=== PATIENT | female | born 1960 | race Caucasian/White ===

== ENCOUNTER 2020-03-11 13:49 | Emergency (ER) | payer BC ==
[2020-03-11 13:58] VITALS: BP 159/86; PULSE 98
--- NOTE | 2020-03-11 14:04 | EDM.PDOC ---
ED HPI GENERAL MEDICAL PROBLEM - General Chief Complaint: Lower Extremity Injury/Pain Stated Complaint: ACCIDENT VIA [facility] AM Time Seen by Provider: 03/11/20 13:55 Source of Information: Reports: Patient, EMS History Limitations: Reports: No Limitations - History of Present Illness INITIAL COMMENTS - FREE TEXT/NARRATIVE: 59 yo female had just arrived here from her home [place] of [facility] when a couple of medium sized dogs ran into her and knocked her down with resulting ? dislocation of her L ankle. EMS arrived with her after Fentanyl 100 mcg was given IV with relief of her pain. Onset: Today, Sudden Onset Date: 03/11/20 Onset Time: 13:05 Duration: Minutes:, Constant Location: Reports: Lower Extremity, Left Quality: Reports: Ache Severity: Moderate (after Fentanyl) Improves with: Reports: Medication Worsens with: Reports: Movement Context: Reports: Trauma Associated Symptoms: Reports: No Other Symptoms Treatments ORE GRADER: Reports: Other (see below) (IV Fentanyl 100 mcg) Left Ankle Pain Score (Numeric/FACES): 9 - Related Data Allergies Allergy/AdvReac Type Severity Reaction Status Date / Time No Known Allergies Allergy Verified 03/11/20 13:50 Home Meds: Home Meds Acetaminophen/oxyCODONE [Percocet 325-5 MG] 1 - 2 each PO QID PRN #30 tab 03/11/20 [Rx] Past Medical History Gastrointestinal History: Reports: None Musculoskeletal History: Reports: None - Past Surgical History Head Surgeries/Procedures: Reports: None GI Surgical History: Reports: Hernia Repair/Other Musculoskeletal Surgical History: Reports: Other (See Below) Dermatological Surgical History: Reports: None Social & Family History - Tobacco Use Smoking Status *Q: Never Smoker Second Hand Smoke Exposure: No - Caffeine Use Caffeine Use: Reports: Tea - Recreational Drug Use Recreational Drug Use: No Review of Systems - Review of Systems Review Of Systems: See Below Constitutional: Reports: No Symptoms Musculoskeletal: Reports: Joint Pain (L ankle) Skin: Reports: No Symptoms Neurological: Reports: No Symptoms ED EXAM, GENERAL - Physical Exam Exam: See Below Exam Limited By: No Limitations General Appearance: Alert, WD/WN, No Apparent Distress Peripheral Pulses: 2+: Posterior Tibial (L), Posterior Tibial (R), Dorsalis Pedis (L), Dorsalis Pedis (R) Extremities: No Pedal Edema, Other (visibly deformed L ankle). No: Normal Inspection, Normal Range of Motion, Non-Tender, Pedal Edema, Limited Range of Motion (L ankle) Neurological: Alert, Oriented, CN II-XII Intact, Normal Cognition, No Motor/Sensory Deficits Psychiatric: Normal Affect, Normal Mood Skin Exam: Warm, Dry, Intact, Normal Color, No Rash ED TRAUMA EXTREMITY PROCEDURES - Joint Reduction Left Ankle Sedation: Conscious Sedation (6 mg of IV Versed) Technique: Traction/Counter Traction Number of Attempts: 1 Post-Reduction Imaging: Completely Reduced Joint Reduction Complications: No Progress/Comments: OrthoGlass Stirrup splint applied with a 3 inch and a 4 inch ANDRÉS wrap. 26 in of 3 inch Width OrthoGlass used. Course - Vital Signs Last Recorded V/S: Last Vital Signs Temp 37.9 C 03/11/20 13:53 Pulse 98 03/11/20 13:53 Resp 16 03/11/20 13:53 BP 159/86 H 03/11/20 13:53 Pulse Ox 96 03/11/20 13:53 - Orders/Labs/Meds Orders: Active Orders 24 hr Category Date Time Status Ankle Min 3V Lt [CR] Stat Exams 03/11/20 14:45 Taken Meds: Medications Discontinued Medications Generic Name Dose Route Start Last Admin Trade Name Freq PRN Reason Stop Dose Admin Hydromorphone HCl 1 mg 03/11/20 14:45 03/11/20 14:55 Dilaudid IVPUSH 03/11/20 14:46 1 mg ONETIME ONE Administration Midazolam HCl 4 mg 03/11/20 14:20 03/11/20 14:38 Versed 1 Mg/Ml IVPUSH 03/11/20 14:21 4 mg ONETIME ONE Administration Midazolam HCl 2 mg 03/11/20 14:38 03/11/20 14:41 Versed 1 Mg/Ml IVPUSH 03/11/20 14:39 2 mg ONETIME ONE Administration - Radiology Interpretation Free Text/Narrative:: L ankle [id number] Post-reduction I-[id number] fx s/p reduction Departure - Departure Time of Disposition: 15:20 Disposition: Home, Self-Care 01 Condition: Fair Clinical Impression: Ankle dislocation Qualifiers: Encounter type: initial encounter Laterality: left Qualified Code(s): S93.05XA - Dislocation of left ankle joint, initial encounter Trimalleolar fracture of left ankle Qualifiers: Encounter type: initial encounter Fracture type: closed Qualified Code(s): S82.852A - Displaced trimalleolar fracture of left lower leg, initial encounter for closed fracture - Discharge Information *PRESCRIPTION DRUG MONITORING PROGRAM REVIEWED*: No *COPY OF PRESCRIPTION DRUG MONITORING REPORT IN PATIENT JAMEL: No Prescriptions: Acetaminophen/oxyCODONE [Percocet 325-5 MG] 1 - 2 each PO QID PRN #30 tab PRN Reason: Pain Instructions: Ankle Dislocation, [id number], Ankle Fracture Referrals: PCP,None [Primary Care Provider] - Forms: ED Department Discharge Additional Instructions: Wear splint at all times. Keep ankle elevated above your heart as much as possible. Crutch walking and no weight bearing. Take ibuprofen 400 mg every 6 hrs with food for pain relief. Add Percocet OR acetaminophen for added relief. See orthopedics early next week for surgical repair-take your X-rays to your appt. Sepsis Event Note (ED) - Evaluation Sepsis Screening Result: No Definite Risk - Focused Exam Vital Signs: Vital Signs Temp Pulse Resp BP Pulse Ox 03/11/20 13:53 37.9 C 98 16 159/86 H 96 03/11/20 13:51 37.9 C 98 16 159/86 H 96 - My Orders Last 24 Hours: My Active Orders 03/11/20 14:45 Ankle Min 3V Lt [CR] Stat - Assessment/Plan Last 24 Hours: My Active Orders 03/11/20 14:45 Ankle Min 3V Lt [CR] Stat
[2020-03-11] MEDS: Midazolam 1 MG/ML 2 ML SDV IVPUSH ONE ×2 (14:38→14:41)
--- NOTE | 2020-03-11 14:54 | CR ---
Ankle 2V Lt CLINICAL HISTORY: Pain, dislocation FINDINGS: The soft tissues are swollen. There is the lateral dislocation of the talus. The subtalar joints are asymmetric. Talar fracture is not excluded. There is a fracture of the distal fibula. Impression: Displaced fracture distal fibula with lateral dislocation of the tibiotalar joint Asymmetrically at the subtalar joints could be from subluxation or fracture
[2020-03-11] MEDS: HYDROmorphone 1 MG/ML Syringe IVPUSH ONE (14:55)
--- NOTE | 2020-03-11 15:07 | CR ---
Ankle Min 3V Lt CLINICAL HISTORY: Postreduction FINDINGS: There is been partial reduction of a trimalleolar fracture. There is widening of the medial ankle mortise. There is a splint in place. Impression: Partial reduction of trimalleolar fracture and dislocation
== END 2020-03-11 16:21 | disposition home or self-care (01) ==
LOC: JP.ED 13:49
DX: S82.852A Displaced trimalleolar fracture of left lower leg, initial encounter for closed fracture (principal); W19.XXXA Unspecified fall, initial encounter
CPT/HCPCS: 27818; 73600-26-LT; 73600-LT; 73610-26-LT; 73610-LT; 96374; 96375; 99283; 99284-25; J1170; J2250